=== PATIENT | male | born 1985 | race Caucasian/White ===

== ENCOUNTER 2020-07-23 07:10 | Emergency (ER) | payer OTHER, SELFPAY ==
[~2020-07-23] VITALS: Ht 177.8 cm; Wt 68.2 kg
[2020-07-23] MEDS ORDERED: MORPHINE 4 MG/ML 1ML VIAL/SYRINGE (J2270) IV ONE (07:45)
[2020-07-23 07:48] LABS: BASO % 0.3 % (0.0-1.0); EOS # 0.1 10^3/uL (0.0-0.5); EOS % 1.8 % (0.0-3.0); HEMATOCRIT 43.1 % (42.0-52.0); HEMOGLOBIN 14.2 g/dl (13.5-17.5); LYMPH # 2.8 10^3/uL (1.5-5.0); LYMPH % 39.8 % (24.0-44.0); MEAN CORPUSCULAR HEMOGLOBIN 30.3 pg (27.0-33.0); MEAN CORPUSCULAR HGB CONC 32.9 g/dl (32.0-36.5); MEAN CORPUSCULAR VOLUME 92.1 fl (80.0-96.0); MONO # 0.6 10^3/uL (0.0-0.8); MONO % 8.1 % (0.0-5.0); NEUTROPHILS # 3.5 10^3/uL (1.5-8.5); NEUTROPHILS % 49.7 % (36.0-66.0); PLATELET COUNT, AUTOMATED 201 10^3/uL (150-450); RED BLOOD COUNT 4.68 10^6/uL (4.30-6.10)
[2020-07-23] MEDS ORDERED: ISOVUE-370 76% 100ML VIAL As Ordered ONE (07:55)
[2020-07-23] MEDS ORDERED: KETOROLAC 30 MG/ML 1ML VIAL As Ordered ONE (08:25)
[2020-07-23] MEDS ORDERED: KETOROLAC 30 MG/ML 1ML VIAL IV ONE (08:30)
[2020-07-23 08:37] LABS: ALBUMIN 3.9 GM/DL (3.2-5.2); BILIRUBIN,DIRECT 0.1 MG/DL (0.0-0.2); BILIRUBIN,TOTAL 0.3 MG/DL (0.2-1.0)
[2020-07-23] MEDS ORDERED: NS 1,000 ML IV SCH (08:45)
--- NOTE | 2020-07-23 09:38 | REP ---
INDICATION: RLQ pain.. Pain radiating to the umbilicus. COMPARISON: None. TECHNIQUE: Contrast dose: 100 ML of Isovue [address] technique: Helical scanning is acquired and overlapping 1.5 mm and contiguous 3 mm axial images are reformatted. In addition, maximum intensity projection and multiplanar re-formation images are generated in sagittal and coronal imaging projections. Pre and post contrast injected imaging is acquired as requested. FINDINGS: Preliminary digital utility bill complaints investigator radiograph demonstrates several loops of air-filled mildly dilated small bowel in the central abdomen question ileus. There is moderate right colonic stool. The lung bases are clear on axial CT images. Precontrast CT study shows no evidence of intrarenal calculus. No hydronephrosis or yolk ureteral calculus is seen. No bladder calculus is observed. There are is a dystrophic calcification in the prostate gland. On pre and postcontrast images, the liver and spleen are normal in size homogeneous in texture. No abnormality is noted in the gallbladder or the pancreas. The kidneys enhance symmetrically. There is a 1.4 cm cortical cyst in the lower pole of the left kidney and a 0.8 cm cyst is seen in the lower pole the right kidney. Normal adrenal glands are seen bilaterally. No vascular abnormality is appreciated. There is an appendicolith at the origin of the appendix from the cecal tip. This measures 0.8 cm and is calcific in density. However, the remainder of the appendix is normal in caliber and there is no visible Marzena appendiceal inflammatory change or fluid. The appendix is retrocecal in position. There are air and fluid-filled loops of mildly prominent small bowel in the central abdomen again consistent with ileus. No obstructive lesion is seen. Moderate stool in the right colon. Left colon is unremarkable. No abdominal wall defect is seen. Bone window settings show no bony destructive lesion. IMPRESSION: There is a 0.8 cm calcified appendiculolith at the origin of the appendix from the tip of the cecum. The appendix is air-filled, nondilated and there is no evidence of wall thickening or periappendiceal inflammation. There is a mild ileus pattern in the bowel gas. No urinary tract calculus or hydronephrosis seen. Otherwise negative. <Electronically signed by Josué Hill > 07/23/20 2108
[2020-07-23] MEDS ORDERED: FLEET ENEMA PR PRN (10:00)
[2020-07-23] MEDS ORDERED: MIRALAX *UNIT DOSE* 17GM PACKET PO PRN (11:00)
[2020-07-23 11:49] VITALS: BP 156/83
[2020-07-23] MEDS ORDERED: MILKSUS3 PO (12:02)
== END 2020-07-23 12:19 | disposition home or self-care (01) ==
LOC: M ED 07:10
DX: K59.00 Constipation, unspecified (principal); K38.8 Other specified diseases of appendix; F17.200 Nicotine dependence, unspecified, uncomplicated; F12.10 Cannabis abuse, uncomplicated
CPT/HCPCS: 74178; 80047; 80076; 81001; 83690; 85025; 96361; 96374; 96375; 99284; J1885; J2270; Q9967

== ENCOUNTER 2024-02-18 12:42 | Emergency (ER) | payer OTHER, SELFPAY ==
[~2024-02-18] VITALS: Ht 180.3 cm; Wt 88.6 kg
[~2024-02-18 12:42] MED LIST: IBUP200C25 PO; MILKSUS3 PO
[2024-02-18 12:51] VITALS: TEMP 98.3
[2024-02-18] MEDS ORDERED: LISI20TA33 PO (12:58)
[2024-02-18] MEDS ORDERED: AMLO25TA PO (12:58)
[2024-02-18 16:09] LABS: BASO % 0.6 % (0.0-1.0); EOS # 0.1 10^3/uL (0.0-0.5); EOS % 1.5 % (0.0-3.0); HEMATOCRIT 41.7 % (42.0-52.0); HEMOGLOBIN 14.2 g/dl (13.5-17.5); LYMPH % 27.4 % (24.0-44.0); MEAN CORPUSCULAR HEMOGLOBIN 30.5 pg (27.0-33.0); MEAN CORPUSCULAR HGB CONC 34.1 g/dl (32.0-36.5); MEAN CORPUSCULAR VOLUME 89.5 fl (80.0-96.0); MONO # 0.9 10^3/uL (0.0-0.8); NEUTROPHILS # 4.1 10^3/uL (1.5-8.5); NEUTROPHILS % 57.7 % (36.0-66.0); PLATELET COUNT, AUTOMATED 185 10^3/uL (150-450); RED BLOOD COUNT 4.66 10^6/uL (4.30-6.10); WHITE BLOOD COUNT 7.2 10^3/uL (4.0-10.0)
[2024-02-18 16:42] LABS: BLOOD UREA NITROGEN 17 MG/DL (9-23); CARBON DIOXIDE LEVEL 28 MMOL/L (20-31); CHLORIDE LEVEL 104 MMOL/L (98-107); GLOMERULAR FILTRATION RATE > 60.0 (>60); GLUCOSE, FASTING 90 MG/DL (60-100); POTASSIUM SERUM 4.6 MMOL/L (3.5-5.1); SODIUM LEVEL 135 MMOL/L (136-145)
[2024-02-18] MEDS ORDERED: ISOVUE-370 76% 100ML VIAL As Ordered ONE (16:48)
[2024-02-18 18:00] VITALS: BP 140/90; O2SAT 96
== END 2024-02-18 18:06 | disposition home or self-care (01) ==
LOC: M ED 12:42
DX: K40.90 Unilateral inguinal hernia, without obstruction or gangrene, not specified as recurrent (principal); I10 Essential (primary) hypertension; F17.200 Nicotine dependence, unspecified, uncomplicated; Z79.811 Long term (current) use of aromatase inhibitors; Z79.899 Other long term (current) drug therapy
CPT/HCPCS: 36415; 74177; 76857; 80048; 83605; 85025; 99284; Q9967

== ENCOUNTER 2024-07-22 08:48 | Emergency (ER) | payer OTHER ==
[~2024-07-22] VITALS: Ht 175.3 cm; Wt 77.1 kg
[~2024-07-22 08:48] MED LIST changes: +AMLO25TA PO; +LISI20TA33 PO
[2024-07-22 09:47] VITALS: O2SAT 100
[2024-07-22] MEDS: MORPHINE 10 MG/ML 1ML VIAL IM ONE (09:47)
[2024-07-22 14:03] VITALS: BP 150/88; TEMP 97.5
== END 2024-07-22 14:08 | disposition home or self-care (01) ==
LOC: M ED 08:48 → EDBD 08:48 → M ED 14:08
DX: S06.0X0A Concussion without loss of consciousness, initial encounter (principal); S20.211A Contusion of right front wall of thorax, initial encounter; S00.93XA Contusion of unspecified part of head, initial encounter; Y92.9 Unspecified place or not applicable; Y93.9 Activity, unspecified; Y99.9 Unspecified external cause status; I10 Essential (primary) hypertension; F17.210 Nicotine dependence, cigarettes, uncomplicated; Z79.1 Long term (current) use of non-steroidal anti-inflammatories (NSAID); Z79.899 Other long term (current) drug therapy